=== PATIENT | male | born 1965 | race Caucasian/White ===

== ENCOUNTER 2020-08-03 12:17 | Outpatient (CLI) | payer OTHER, SELFPAY ==
--- NOTE | ~2020-08-03 | XR_ITS ---
EXAMINATION: XR chest 2V EXAM DATE: 08/03/2020 12:34 INDICATION: Cough, COVID positive. TECHNIQUE: Frontal and lateral projections of the chest obtained and reviewed. Comparison is made to prior examination from 03/19/2011. FINDINGS: Small amount of patchy ill-defined bibasilar infiltrate. Mid and upper lung zones are toney r. Cardiomediastinal silhouette is normal. Moderate-sized thoracic bridging endplate osteophytes. IMPRESSION: Small patchy ill-defined bibasilar infiltrate. Reviewed, dictated and finalized at location B. Y DEMONSTRATOR
== END 2020-08-03 12:18 | disposition home or self-care (01) ==
PROVIDERS: PCP Internal Medicine; Visit Provider Internal Medicine
DX: R05 Cough (principal); U07.1 COVID-19; R91.8 Other nonspecific abnormal finding of lung field
CPT/HCPCS: 71046

== ENCOUNTER 2021-03-23 08:59 | Outpatient (CLI) | payer OTHER, SELFPAY ==
[2021-03-23 11:17] LABS: Hemoglobin A1C 12.5 % (<5.7)
[2021-03-23 12:04] LABS: LDL Cholesterol Direct < 60 mg/dL
[2021-03-23 12:05] LABS: Alanine Aminotransferase 32 U/L (4-50); Albumin Level 4.5 g/dL (3.5-5.1); Alkaline Phosphatase 89 U/L (38-126); Anion Gap 10 mmol/L (8-16); Aspartate Amino Transferase 24 U/L (17-59); Bilirubin,Total 0.8 mg/dL (0.2-1.3); Blood Urea Nitrogen 11 mg/dL (9-20); Calcium 9.6 mg/dL (8.4-10.2); Carbon Dioxide 24 mmol/L (22-30); Chloride 101 mmol/L (98-107); Cholesterol 299 mg/dL (0-200); Estimated Glomerular Filt Rate > 60; Glucose 314 mg/dL (65-110); Potassium 4.2 mmol/L (3.4-5.0); Sodium 135 mmol/L (137-145)
[2021-03-23 13:16] LABS: Microalbumin Urine Random 873.6 mg/L (0-16.7)
[2021-03-23 14:34] LABS: Triglycerides 1024 mg/dL (<150)
== END 2021-03-23 09:00 | disposition home or self-care (01) ==
LOC: ANHLAB 09:01
PROVIDERS: PCP Internal Medicine; Visit Provider Internal Medicine
DX: E11.9 Type 2 diabetes mellitus without complications (principal); E78.5 Hyperlipidemia, unspecified; Z79.899 Other long term (current) drug therapy
CPT/HCPCS: 36415; 80053; 80061; 82043; 83036

== ENCOUNTER 2022-03-09 10:00 | Outpatient (CLI) | payer OTHER, SELFPAY ==
[2022-03-09 10:41] LABS: Hemoglobin A1C 7.6 % (<5.7)
[2022-03-09 10:55] LABS: LDL Cholesterol Direct 57 mg/dL
[2022-03-09 11:15] LABS: Alanine Aminotransferase 38 U/L (6-50); Albumin Level 4.6 g/dL (3.5-5.1); Alkaline Phosphatase 78 U/L (38-126); Anion Gap 12 mmol/L (8-16); Aspartate Amino Transferase 27 U/L (17-59); Bilirubin,Total 0.5 mg/dL (0.2-1.3); Blood Urea Nitrogen 21 mg/dL (9-20); Calcium 9.3 mg/dL (8.4-10.2); Carbon Dioxide 22 mmol/L (22-30); Chloride 105 mmol/L (98-107); Cholesterol 219 mg/dL (0-200); Estimated Glomerular Filt Rate > 60; Glucose 169 mg/dL (65-110); HDL Direct 33 mg/dL; Potassium 4.2 mmol/L (3.4-5.0); Sodium 139 mmol/L (137-145)
[2022-03-09 11:25] LABS: Creatinine Urine 71.4 mg/dL
[2022-03-09 11:32] LABS: MALB Creatinine Ratio 211.5 mg/g (0-30)
[2022-03-09 13:17] LABS: Prostate Specific Antigen 0.5 ng/mL (< OR = 4.0)
[2022-03-09 13:32] LABS: Triglycerides 628 mg/dL (<150)
== END 2022-03-09 10:01 | disposition home or self-care (01) ==
LOC: ANHLAB 10:03
PROVIDERS: PCP Internal Medicine; Visit Provider Internal Medicine
DX: E11.9 Type 2 diabetes mellitus without complications (principal); Z79.899 Other long term (current) drug therapy; Z12.5 Encounter for screening for malignant neoplasm of prostate; E78.5 Hyperlipidemia, unspecified
CPT/HCPCS: 36415; 80053; 80061; 82043; 83036; 84153; G0103

== ENCOUNTER 2023-02-12 09:05 | Outpatient (CLI) | payer OTHER, SELFPAY ==
[2023-02-13 11:51] LABS: MALB Creatinine Ratio 227.3 mg/g (0-30); Microalbumin Urine Random 134.1 mg/L (0-16.7)
== END 2023-02-12 09:06 | disposition home or self-care (01) ==
LOC: ANHGOSHLAB 09:07
PROVIDERS: PCP Nurse Practitioner Family; Visit Provider Nurse Practitioner
DX: E78.5 Hyperlipidemia, unspecified (principal); E11.9 Type 2 diabetes mellitus without complications
CPT/HCPCS: 82043

== ENCOUNTER 2023-04-15 09:00 | Outpatient (CLI) | payer OTHER, SELFPAY ==
[2023-04-15 19:35] LABS: Alanine Aminotransferase 33 U/L (6-50); Albumin Level 4.5 g/dL (3.5-5.1); Alkaline Phosphatase 76 U/L (38-126); Anion Gap 11 mmol/L (8-16); Aspartate Amino Transferase 25 U/L (17-59); Bilirubin,Total 0.6 mg/dL (0.2-1.3); Blood Urea Nitrogen 17 mg/dL (9-20); Calcium 8.9 mg/dL (8.4-10.2); Carbon Dioxide 24 mmol/L (22-30); Chloride 104 mmol/L (98-107); Cholesterol 233 mg/dL (0-200); Estimated Glomerular Filt Rate > 60; Glucose 182 mg/dL (65-110); Potassium 4.2 mmol/L (3.4-5.0); Sodium 139 mmol/L (137-145)
[2023-04-15 19:41] LABS: Hemoglobin A1C 8.1 % (<5.7)
[2023-04-15 19:42] LABS: Basophils Absolute Auto 0.1 K/mm3 (0.0-0.1); Basophils Percent Auto 1.2 % (0.2-1.2); Eosinophils Absolute Auto 0.1 K/mm3 (0-0.3); Eosinophils Percent Auto 1.2 % (0-4.4); Hematocrit 45.7 % (42.0-52.0); Hemoglobin 16.5 g/dL (14.0-18.0); Immature Granulocyte Absolute 0.25 K/mm3 (0.00-0.031); Immature Granulocyte Percent A 3.4 % (0-0.5); Lymphocytes Percent Auto 23.4 % (18.3-44.2); Mean Corpuscular HGB Conc 36.1 g/dl (32-36); Mean Corpuscular Hemoglobin 31.9 pg (26-34); Mean Corpuscular Volume 88.4 fl (80-100); Mean Platelet Volume 10.7 fl (7.4-10.4); Monocytes Absolute Auto 0.7 K/mm3 (0.1-0.6); Monocytes Percent Auto 9.6 % (2.6-8.5); Neutrophils Absolute Auto 4.5 K/mm3 (1.3-6.7); Neutrophils Percent Auto 61.2 % (45.5-73.1); Platelet Count Result 197 k/mm3 (150-375); Red Blood Count 5.17 M/mm3 (4.6-6.20); White Blood Count 7.3 K/mm3 (4.5-10.0)
[2023-04-15 19:44] LABS: LDL Cholesterol Direct 70 mg/dL
[2023-04-15 19:53] LABS: Triglycerides 715 mg/dL (<150)
[2023-04-16 17:49] LABS: Prostate Specific Antigen 0.7 ng/mL (< OR = 4.0)
[2023-04-18 10:08] LABS: Testosterone Total 225 ng/dL (250-1100)
== END 2023-04-15 09:01 | disposition home or self-care (01) ==
LOC: ANHGOSHLAB 09:02
PROVIDERS: PCP Nurse Practitioner Family; Visit Provider Nurse Practitioner Family
DX: E78.5 Hyperlipidemia, unspecified (principal); Z12.5 Encounter for screening for malignant neoplasm of prostate; E11.29 Type 2 diabetes mellitus with other diabetic kidney complication; R20.0 Anesthesia of skin; R80.9 Proteinuria, unspecified
CPT/HCPCS: 36415; 80053; 80061; 83036; 84153; 84403; 85025; 86812; G0103

== ENCOUNTER 2023-04-16 12:28 | Outpatient (CLI) | payer OTHER, SELFPAY ==
[2023-04-20 14:33] LABS: HLA B27 Negative (Negative)
== END 2023-04-16 12:29 | disposition home or self-care (01) ==
LOC: ANHGOSHLAB 12:30
PROVIDERS: Visit Provider Nurse Practitioner Family
DX: Z82.61 Family history of arthritis (principal)
CPT/HCPCS: 36415; 86812

== ENCOUNTER 2023-04-17 12:58 | Outpatient (CLI) | payer OTHER, SELFPAY ==
--- NOTE | ~2023-04-17 | MR_ITS ---
EXAMINATION: MR thoracic spine wo con DATE: 04/17/2023 14:48 INDICATION: Back pain TECHNIQUE: Magnetic resonance imaging (MRI) of the thoracic spine was performed without intravenous c ontrast. Sagittal localizer T1-weighted FSE of the cervicothoracic spine was obtained. Thoracic spine sequences included sagittal T2-weighted FSE, sagittal T1-weighted SE, Sagittal T2-weighted FS FSE, a nd axial T2-weighted FSE. COMPARISON: Chest radiograph dated 08/03/2020 FINDINGS: 15 degree thoracic dextroscoliosis. There are bridging or nearly bridging endplate osteophytes throug hout the thoracic spine consistent with diffuse idiopathic skeletal hyperostosis (DISH). Vertebral melissa dy heights are normal. There are small Schmorl's nodes along multiple endplates in the thoracic spine with lower thoracic predominance. Normal marrow signal.Moderate disc height loss at T4-T5 through T8 -T9with mild disc height loss at remaining thoracic levels. Disc protrusions resulting in mild centra l canal stenosis from T1 to T2 through T5-T6. Disc bulges resulting in mild indentation of the left v entral surface of the cord at T2-T3 and the right from surface of the cord at T3-T4. Mild neural for aminal stenosis bilaterally at T1-T2 and T2-T3. There is normal spinal cord signal. The conus termina nilesh at the level of the caudal margin of the [id number] at L1. Paravertebral soft tissues are unre markable. IMPRESSION: 1. Moderate thoracic spondylosis. Reviewed, dictated and finalized at location A.
--- NOTE | ~2023-04-17 | MR_ITS ---
EXAMINATION: MR cervical spine wo con DATE: 04/17/2023 14:48 INDICATION: Neck pain, left hand and arm numbness and anesthesia of skin TECHNIQUE: Magnetic resonance imaging (MRI) of the cervical spine was performed without intravenous c ontrast. Sequences included sagittal T2-weighted FSE, sagittal T2-weighted FS FSE, sagittal T1-weight ed FSE, axial MERGE and axial T2-weighted FSE. COMPARISON: None FINDINGS: Straightening of the normal cervical lordosis. Vertebral body heights are normal. Bone marrow signa l intensity is normal. There are prominent bridging anterior osteophytes extending from C2 through C7 and additional bridging osteophytes at T1-T3 consistent with diffuse idiopathic skeletal hyperostosi s (DISH). Mild disc height loss at C3-C4 and C5-C6 and moderate at C4-C5. Ossification along the pos terior longitudinal ligament from C4 through C6. Immediate signal intensity likely pannus formation s urrounding the dens which mildly narrows the central canal at the level of the ring of C1. Cord signa l intensity is normal. Cervical soft tissues are unremarkable. The following disc levels are specific ally discussed: C2-C3: The disc does not extend beyond the endplate margin. There is mild bilateral uncovertebral aleksandra nt osteoarthritis. There is mild right and moderate left facet joint osteoarthritis. There is mild le ft neural foraminal stenosis. There is no central canal stenosis. C3-C4: Disc is bulging. There is moderate left and severe right uncovertebral joint osteoarthritis. T here is minimal bilateral facet joint osteoarthritis. There is moderate left and mild to moderate rig ht neural foraminal stenosis. There is mild central canal stenosis with indentation of the right vent ral surface of the cord. C4-C5: Disc is mildly bulging and there is ossification of the posterior longitudinal ligament which indents the central to left ventral surface of the cord. There is severe bilateral uncovertebral oste oarthritis.. There is minimal bilateral facet joint osteoarthritis. There is moderate left and mild r ight neural foraminal stenosis. There is mild to moderate left-sided predominant central canal stenos is. C5-C6: Disc is mildly bulging. There is additional prominent ossification of the posterior longitudin al ligament with similarly indents the central to left ventral surface of the cord. There is severe b ilateral uncovertebral osteoarthritis. There is minimal bilateral facet joint osteoarthritis. There i s moderate bilateral neural foraminal stenosis. There is mild to moderate left-sided predominant cent ral canal stenosis. C6-C7: Disc is bulging. There is moderate right and severe left uncovertebral joint osteoarthritis. T here is minimal bilateral facet joint osteoarthritis. There is moderate bilateral neural foraminal st enosis. There is mild central canal stenosis. C7-T1: Disc is mildly bulging. There is mild left and moderate right uncovertebral joint osteoarthrit is. There is mild bilateral facet joint osteoarthritis. There is mild left and mild to moderate right neural foraminal stenosis. There is mild central canal stenosis. IMPRESSION: 1. Mild cervical spondylosis with bridging anterior osteophytes and ossification of the posterior regino gitudinal ligament consistent with DISH which contributes to mild to moderate central canal stenosis at C4-C5 and C5-C6. Reviewed, dictated and finalized at location A. IMPRESSION: 1. Mild cervical spondylosis with bridging anterior osteophytes and ossificatio n of the posterior longitudinal ligament consistent with DISH which contributes to mild to moderate central canal stenosis at C4-C5 and C5-C6.
== END 2023-04-17 12:59 ==
LOC: GOSHIMG 12:59
PROVIDERS: PCP Nurse Practitioner Family; Visit Provider Nurse Practitioner Family
DX: R20.0 Anesthesia of skin (principal); G54.2 Cervical root disorders, not elsewhere classified; R93.89 Abnormal findings on diagnostic imaging of other specified body structures; M47.894 Other spondylosis, thoracic region; M47.892 Other spondylosis, cervical region
CPT/HCPCS: 72141; 72146

== ENCOUNTER 2023-09-02 08:14 | Outpatient (CLI) | payer OTHER, SELFPAY ==
[2023-09-02 19:08] LABS: Basophils Absolute Auto 0.1 K/mm3 (0.0-0.1); Basophils Percent Auto 1.1 % (0.2-1.2); Eosinophils Absolute Auto 0.1 K/mm3 (0-0.3); Eosinophils Percent Auto 1.2 % (0-4.4); Hematocrit 48.4 % (42.0-52.0); Hemoglobin 16.6 g/dL (14.0-18.0); Immature Granulocyte Absolute 0.19 K/mm3 (0.00-0.031); Immature Granulocyte Percent A 2.3 % (0-0.5); Lymphocytes Absolute Auto 1.58 K/mm3 (0.9-3.2); Lymphocytes Percent Auto 19.2 % (18.3-44.2); Mean Corpuscular HGB Conc 34.3 g/dl (32-36); Mean Corpuscular Hemoglobin 29.9 pg (26-34); Mean Corpuscular Volume 87.1 fl (80-100); Mean Platelet Volume 9.9 fl (7.4-10.4); Monocytes Absolute Auto 0.9 K/mm3 (0.1-0.6); Monocytes Percent Auto 11.2 % (2.6-8.5); Neutrophils Absolute Auto 5.3 K/mm3 (1.3-6.7); Platelet Count Result 200 k/mm3 (150-375); Red Blood Count 5.56 M/mm3 (4.6-6.20); Red Cell Distribution Width 15.3 % (11.5-14.5); White Blood Count 8.2 K/mm3 (4.5-10.0)
[2023-09-02 21:08] LABS: Alanine Aminotransferase 38 U/L (6-50); Albumin Level 4.3 g/dL (3.5-5.1); Alkaline Phosphatase 72 U/L (38-126); Anion Gap 5 mmol/L (8-16); Aspartate Amino Transferase 36 U/L (17-59); Bilirubin,Total 0.7 mg/dL (0.2-1.3); Blood Urea Nitrogen 11 mg/dL (9-20); Calcium 9.3 mg/dL (8.4-10.2); Carbon Dioxide 29 mmol/L (22-30); Chloride 103 mmol/L (98-107); Cholesterol 185 mg/dL (0-200); Estimated Glomerular Filt Rate > 60; Glucose 141 mg/dL (65-110); HDL Direct 30 mg/dL; Potassium 4.1 mmol/L (3.4-5.0); Sodium 137 mmol/L (137-145); Triglycerides 416 mg/dL (<150)
[2023-09-02 21:19] LABS: LDL Cholesterol Direct 89 mg/dL
[2023-09-02 21:35] LABS: Hemoglobin A1C 8.1 % (<5.7)
[2023-09-05 11:55] LABS: Testosterone Total 311 ng/dL (250-1100)
== END 2023-09-02 08:15 | disposition home or self-care (01) ==
LOC: ANHGOSHLAB 08:16
PROVIDERS: PCP Nurse Practitioner Family; Visit Provider Nurse Practitioner Family
DX: E11.9 Type 2 diabetes mellitus without complications (principal); M19.90 Unspecified osteoarthritis, unspecified site; R20.0 Anesthesia of skin; Z79.899 Other long term (current) drug therapy; Z86.39 Personal history of other endocrine, nutritional and metabolic disease; E29.1 Testicular hypofunction; E11.29 Type 2 diabetes mellitus with other diabetic kidney complication; R80.9 Proteinuria, unspecified
CPT/HCPCS: 36415; 80053; 80061; 83036; 84403; 85025

== ENCOUNTER 2023-09-22 09:46 | Emergency (ER) | payer OTHER, SELFPAY ==
[2023-09-22 09:51] VITALS: BP 144/80; PULSE 86; RESP 16; TEMP 36.6; O2SAT 98
--- NOTE | 2023-09-22 10:25 | ED.URI ---
HPI - URI/Sore Throat General Chief Complaint: Upper Respiratory Infection Stated Complaint: Sore Throat Time Seen by Provider: 09/22/23 10:18 Source: patient and RN notes reviewed Mode of arrival: ambulatory Limitations: no limitations History of Present Illness HPI Narrative: Patient presents today complaining of a one-week history of sore throat, postnasal drip, rhinorrhea. He also reports recent gum pain, swelling, bleeding, which has been present in the past and diagnosed as a fungal infection by his dentist. Currently rates his sore throat 02/28 and has tried no medication for symptoms prior to arrival. States that his dentist typically prescribes him clotrimazole troches for his gums and he is wondering if he could have a refill. Related Data Allergies Allergy/AdvReac Type Severity Reaction Status Date / Time codeine Allergy Mild Hives Verified 09/05/23 10:36 Penicillins Allergy Mild Hives Verified 09/05/23 10:36 lisinopril AdvReac Cough Verified 09/05/23 11:20 Review of Systems Review of Systems: CONSTITUTIONAL: Denies body aches, fever, chills, or sweats. EYES: Denies visual changes, redness, or discharge. ENT: Denies congestion, or otalgia.+ sore throat, rhinorrhea, postnasal drip, gum pain and swelling CARDIOVASCULAR: Denies chest pain, palpitations, or edema. RESPIRATORY: Denies cough or dyspnea. GASTROINTESTINAL: Denies abdominal pain, nausea, vomiting, or diarrhea. GENITOURINARY: Denies dysuria or hematuria. SKIN: Denies rash, itching, or wounds. MUSCULOSKELETAL: Denies back pain, joint pain, or myalgia. NEUROLOGIC: Denies headache, numbness, tingling, or weakness. PSYCH: Denies depression or anxiety. [facility] Past Medical History Medical History Colon cancer screening Dyspepsia High blood triglycerides History of COVID-19 Nausea Other and unspecified hyperlipidemia Type 2 diabetes mellitus without complication, without long-term current use of insulin Surgical History Surgical History History of lumbar fusion History of right inguinal hernia repair History of tonsillectomy and adenoidectomy History of uvulectomy Family History Family History Father Family history of diabetes mellitus in first degree relative Family history of psoriasis Other Diabetes mellitus Social History Social History Smoking status: Never smoker Alcohol intake: never Substance use: never Lack of Transportation: No Lack of Food: Never True Current Housing: I Have Housing Concerned About Future Housing: No Difficulty Paying Gas/Electric Bills: No Difficulty Paying for Meds: No Currently Unemployed: No Education: Associate Degree Difficulty w/ Childcare or Family Care: No Living arrangements: with family Occupation/Education: occupation 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 Please see nursing chart for further information. There is no relevant family history pertinent to the presenting complaint Exam Narrative: GENERAL: Well-appearing, well-nourished, and in no acute distress. HEAD: Normocephalic, atraumatic. EYES: EOMI. No redness or drainage. Conjunctivae normal. ENT: Mucous membranes pink and moist. Nares clear. No rhinorrhea. TMs normal bilaterally. Throat mildly erythematous posteriorly without edema or exudate. Uvula midline. Gums are mild to moderately swollen and erythematous. NECK: Normal AROM. Supple. No lymphadenopathy. CHEST: No respiratory
== END 2023-09-22 10:34 | disposition home or self-care (01) ==
PROVIDERS: Emergency Provider Nurse Practitioner; PCP Nurse Practitioner Family
DX: K05.10 Chronic gingivitis, plaque induced (principal); J02.9 Acute pharyngitis, unspecified; E11.9 Type 2 diabetes mellitus without complications
CPT/HCPCS: 87081; 87880; 99213; G0463

== ENCOUNTER 2024-01-14 07:56 | Outpatient (CLI) | payer OTHER, SELFPAY ==
[2024-01-14 12:26] LABS: Basophils Absolute Auto 0.1 K/mm3 (0.0-0.1); Basophils Percent Auto 0.7 % (0.2-1.2); Eosinophils Absolute Auto 0.1 K/mm3 (0-0.3); Eosinophils Percent Auto 1.8 % (0-4.4); Hematocrit 49.1 % (42.0-52.0); Hemoglobin 16.4 g/dL (14.0-18.0); Immature Granulocyte Absolute 0.17 K/mm3 (0.00-0.031); Immature Granulocyte Percent A 2.5 % (0-0.5); Lymphocytes Percent Auto 19.1 % (18.3-44.2); Mean Corpuscular HGB Conc 33.4 g/dl (32-36); Mean Corpuscular Hemoglobin 29.3 pg (26-34); Mean Corpuscular Volume 87.8 fl (80-100); Mean Platelet Volume 10.4 fl (7.4-10.4); Monocytes Absolute Auto 0.8 K/mm3 (0.1-0.6); Monocytes Percent Auto 11.6 % (2.6-8.5); Neutrophils Absolute Auto 4.4 K/mm3 (1.3-6.7); Neutrophils Percent Auto 64.3 % (45.5-73.1); Platelet Count Result 190 k/mm3 (150-375); Red Blood Count 5.59 M/mm3 (4.6-6.20); Red Cell Distribution Width 14.6 % (11.5-14.5); White Blood Count 6.8 K/mm3 (4.5-10.0)
[2024-01-14 12:43] LABS: Creatinine Urine 65.4 mg/dL
[2024-01-14 12:45] LABS: MALB Creatinine Ratio 101.2 mg/g (0-30); Microalbumin Urine Random 66.2 mg/L (0-16.7)
[2024-01-14 12:53] LABS: Alanine Aminotransferase 36 U/L (6-50); Albumin Level 4.6 g/dL (3.5-5.1); Alkaline Phosphatase 80 U/L (38-126); Anion Gap 9 mmol/L (4-12); Aspartate Amino Transferase 36 U/L (17-59); Bilirubin,Total 0.7 mg/dL (0.2-1.3); Blood Urea Nitrogen 16 mg/dL (9-20); Calcium 9.2 mg/dL (8.4-10.2); Carbon Dioxide 29 mmol/L (22-30); Chloride 102 mmol/L (98-107); Estimated Glomerular Filt Rate > 60; Glucose 168 mg/dL (65-110); Potassium 4.5 mmol/L (3.4-5.0); Sodium 140 mmol/L (137-145)
[2024-01-14 15:24] LABS: Hemoglobin A1C 7.7 % (<5.7)
[2024-01-17 13:38] LABS: Testosterone Total 160 ng/dL (250-1100)
== END 2024-01-14 07:57 | disposition home or self-care (01) ==
LOC: ANHGOSHLAB 07:57
PROVIDERS: PCP Nurse Practitioner Family; Visit Provider Nurse Practitioner Family
DX: E11.29 Type 2 diabetes mellitus with other diabetic kidney complication (principal); E78.1 Pure hyperglyceridemia; M48.10 Ankylosing hyperostosis [Forestier], site unspecified; R80.9 Proteinuria, unspecified
CPT/HCPCS: 36415; 80053; 82043; 83036; 84403; 85025

== ENCOUNTER 2024-05-28 13:15 | Emergency (ER) | payer OTHER, SELFPAY ==
--- NOTE | ~2024-05-28 | XR_ITS ---
Left Shoulder Technique: AP and scapular Y views were obtained. Clinical History: Status post fall Findings: No fracture or dislocation is seen. Osseous alignment is anatomic. The glenohumeral joint i s intact. There is moderate AC joint degenerative change. Soft tissues are unremarkable. Impression: Moderate AC joint degenerative change. No acute fracture or dislocation. Reviewed, dictated and finalized at location . RNEY LAW CLERK Impression: Moderate AC joint degenerative change. No acute fracture or dislocation.
--- NOTE | 2024-05-28 13:51 | ED.UPPEXIN ---
HPI - Extremity Injury (Upper) General Chief Complaint: Extremity Injury, Upper Stated Complaint: fall/ lt shoulder injury Time Seen by Provider: 05/28/24 13:51 Source: patient, RN notes reviewed and old records reviewed Mode of arrival: ambulatory Limitations: no limitations History of Present Illness HPI narrative: 58-year-old male presents to the [facility] with complaints of left shoulder injury post fall 2 days ago. Patient states that he was walking down a small slope wearing his Crocs, slipped landing on his left side. States that everything at 1st. Now is denying back pain. No midline tenderness. Has pain to the left anterior shoulder with decreased range of motion. Able to raise a little bit. Patient with full range of motion of the elbow and wrist. Positive radial pulse noted. Related Data Allergies Allergy/AdvReac Type Severity Reaction Status Date / Time codeine Allergy Mild Hives Verified 05/28/24 13:46 Penicillins Allergy Mild Hives Verified 05/28/24 13:46 lisinopril AdvReac Cough Verified 05/28/24 13:46 Review of Systems Review of Systems: All systems reviewed & are unremarkable except as noted in HPI and below Constitutional: Constitutional: Reports no additional constitutional complaints ENT: Reports system reviewed and no additional complaints, except as documented Cardiovascular: Cardiovascular: Reports no additional cardiovascular complaints, Denies chest pain and Denies dyspnea Respiratory: Respiratory: Reports no additional respiratory complaints, Denies chest congestion, Denies cough and Denies dyspnea Gastrointestinal: Gastrointestinal: Reports no additional gastrointestinal complaints, Denies abdominal pain, Denies nausea and Denies vomiting Musculoskeletal: Musculoskeletal: Reports as per HPI and Reports arthralgias (Left anterior shoulder) Integumentary/Breasts: Skin/Breast: Reports system reviewed and no additional complaints, except as docu PMFSH Past Medical History Medical History Colon cancer screening Dyspepsia High blood triglycerides History of COVID-19 Nausea Other and unspecified hyperlipidemia Type 2 diabetes mellitus without complication, without long-term current use of insulin Surgical History Surgical History History of lumbar fusion History of right inguinal hernia repair History of tonsillectomy and adenoidectomy History of uvulectomy Family History Family History Father Family history of diabetes mellitus in first degree relative Family history of psoriasis Other Diabetes mellitus Social History Social History Smoking status: Never smoker Alcohol intake: never Substance use: never Lack of Transportation: No Lack of Food: Never True Current Housing: I Have Housing Concerned About Future Housing: No Difficulty Paying Gas/Electric Bills: No Difficulty Paying for Meds: No Currently Unemployed: No Education: Associate Degree Difficulty w/ Childcare or Family Care: No Living arrangements: with family Occupation/Education: occupation 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 There is no relevant family history pertinent to the patient complaint. Exam Const: General: cooperative, healthy appearing, comfortable, no acute distress, well developed, alert and well nourished Nutritional Appearance: well nourished Orientation/consciousness: patient oriented x3 Limitations: no limitations HENMT: Head: normal to inspection Ears: hearing grossly normal bilaterally and external ears normal Face/Nose/Sinus: Normal external nose present, normal facial exam and face symmetric Face and sinus: normal facial exam and face symmetric Eyes: General: appearance normal, both eyes and all related structures Alignment and Position: alignment normal Periorbital: periorbital findings normal Neck: Neck: normal visual inspection, full ROM, no lymphadenopathy and no meningeal signs Chest: Chest palpation & inspection: normal inspection of the chest Resp: Effort & Inspection: normal respiratory effort and able to speak in complete sentences Cardio: Rate: regular rate Back/Spine/Pelvis: Back: no CVA tenderness and No back tenderness Cervical Spine: normal cervical lordosis, cervical ROM normal, No cervical muscular tenderness, No pain with cervical ROM, No cervical spasm and No Cervical spine tenderness Thoracic/Lumbar Spine: thoracic and lumbar spine normal to inspection, No paraspinal muscle tenderness, No thoracic spinal tenderness and No lumbar spinal tenderness Skin: General skin exam: normal color and no rashes or lesions noted Lesions: no lesions Rashes: no rashes Wounds: no wounds Neuro: General: patient oriented x3, gait normal, tone normal, moves all extremities and no meningeal signs Cognition (Neuro): normal cognition Speech: normal speech Gait exam (Neuro): Normal gait present Extrem: General: normal to inspection, full ROM, capillary refill normal and normal gait Left upper extremity: shoulder/upper arm tenderness (Anterior) and abnormal ROM pain with active ROM and pain with passive ROM; no swelling, no abrasions, no lacerations, no ecchymosis, no crepitus, no foreign bodies, no penetrating wound and no deformity, elbow/forearm normal to inspection and normal ROM; no tenderness, wrist normal to inspection and normal ROM; no tenderness and no swelling and hand normal to inspection, normal capillary refill and normal ROM of fingers Psych: Appearance: grossly normal and well kempt Mental Status: mental status grossly normal Speech and movement: Normal speech and movement present and Clear speech present Affect: normal affect Attitude: cooperative Course Course Level of Care: Express Care Visit Vital Signs Vital signs: Vital Signs Temperature 98.2 F 05/28/24 13:53 Pulse Rate 86 05/28/24 13:53 Respiratory Rate 16 05/28/24 13:53 Blood Pressure 156/101 H 05/28/24 13:53 Pulse Oximetry 99 05/28/24 13:53 Temperature 98.2 F 05/28/24 13:53 Pulse Rate 86 05/28/24 13:53 Respiratory Rate 16 05/28/24 13:53 Blood Pressure 156/101 H 05/28/24 13:53 Pulse Oximetry 99 05/28/24 13:53 Reviewed MDM - Extremity Injury (Upper) MDM Narrative Medical decision making narrative: Patient presents with 2 day history left shoulder pain. Patient reports slipping and falling landing on his left shoulder Bruising or swelling noted. No midline tenderness. Currently denies any back pain. X-ray negative for fractures. Exam most consistent with contusion or strain or sprain of ligaments. Patient appropriate for outpatient treatment and follow-up Discharge instructions reviewed with patient, as well as provided in writing per nursing staff. The instructions also include specific and strict return/GO TO THE ER as well as f/u information. All questions have been answered, and the patient deny any further questions with discharge and discharge plan. Some parts of this dictation were generated by voice recognition software and may contain typographical and/or grammatical inaccuracies. Differential Diagnosis Differential diagnosis: Likely other (Fracture, sprain, contusion) Imaging Data Radiologist's impression: Left Shoulder Technique: AP and scapular Y views were obtained. Clinical History: Status post fall Findings: No fracture or dislocation is seen. Osseous alignment is anatomic. The glenohumeral joint is intact. There is moderate AC joint degenerative change. Soft tissues are unremarkable. Impression: Moderate AC joint degenerative change. No acute fracture or dislocation. Critical Care Time Critical Care Time Critical Care Time: No Discharge Plan Discharge Clinical Impression: Acute pain of left shoulder Fall Qualifiers: Encounter type: initial encounter Qualified Code(s): W19.XXXA - Unspecified fall, initial encounter Patient Disposition: Home, Self-Care Condition: Stable Instructions: Shoulder Sprain (ED), Shoulder Pain (ED) Additional Instructions: Today your blood pressure was 156/101. It is recommended that you follow-up with your primary care provider within the next 2 weeks to have this rechecked. Your Xray did not show a fracture. Ice should be applied to help reduce swelling. It can be used for 20 to 30 minutes, every 2-3 hours while awake. Do not apply ice directly to your skin. You can alternate ibuprofen 600mg and Tylenol 650mg every 4 hours as needed for pain Please schedule a follow-up visit with your personal physician for further evaluation and treatment within 2 weeks especially if symptoms persist. For new or worsening symptoms go directly to the emergency room Patient Language: Ukrainian Prescriptions: No Action Jardiance 25 mg tablet See Rx Instructions .ROUTE .COMPLEX Qty: 90 1RF Hold Instructions: .Provider Order Dose Instruction: TAKE 1 TABLET (25 MG) ORALLY DAILY Rx Instructions: TAKE 1 TABLET (25 MG) ORALLY DAILY sertraline 100 mg tablet See Rx Instructions .ROUTE .COMPLEX Qty: 90 1RF Hold Instructions: .Provider Order Dose Instruction: TAKE 1 TABLET BY MOUTH EVERY DAY Rx Instructions: TAKE 1 TABLET BY MOUTH EVERY DAY metformin 1,000 mg tablet See Rx Instructions .ROUTE .COMPLEX Qty: 90 3RF Hold Instructions: .Provider Order Dose Instruction: TAKE 1 TABLET BY MOUTH EVERY DAY Rx Instructions: TAKE 1 TABLET BY MOUTH EVERY DAY glipizide 10 mg tablet See Rx Instructions .ROUTE .COMPLEX Qty: 90 1RF Hold Instructions: .Provider Order Dose Instruction: TAKE 1 TABLET BY MOUTH EVERY DAY Rx Instructions: TAKE 1 TABLET BY MOUTH EVERY DAY rosuvastatin 10 mg tablet See Rx Instructions .ROUTE .COMPLEX Qty: 90 1RF Dose Instruction: TAKE ONE TABLET BY MOUTH DAILY Rx Instructions: TAKE ONE TABLET BY MOUTH DAILY testosterone cypionate 200 mg/mL oil 200 mg IM ONCE Qty: 10 0RF Hold Instructions: .Provider Order Rx Instructions: as a single dose; every two weeks Follow-up/Referrals: Thao Kumar APRN [Primary Care Provider] - 2 Weeks ([facility] follow up. blood pressure check, 156/101) Stand Alone Forms: Work/School Release IP Time of Disposition: 14:40
[2024-05-28 13:53] VITALS: BP 156/101; PULSE 86; RESP 16; TEMP 36.8; O2SAT 99
== END 2024-05-28 14:50 | disposition home or self-care (01) ==
PROVIDERS: Emergency Provider Nurse Practitioner; PCP Nurse Practitioner Family
DX: M25.512 Pain in left shoulder (principal); W01.0XXA Fall on same level from slipping, tripping and stumbling without subsequent striking against object, initial encounter; E11.9 Type 2 diabetes mellitus without complications; E78.49 Other hyperlipidemia; Z86.16 Personal history of COVID-19
CPT/HCPCS: 73030; 99213; G0463

== ENCOUNTER 2024-08-28 10:13 | Outpatient (CLI) | payer OTHER, SELFPAY ==
--- OUTSIDE RECORDS SUMMARY | 2024-08-28 10:58 | XMS_ITS | Referral Summary ---
Author Organization [facility] Address [address] [place] [address] Care Team Providers Care Top Lift Compressor Name Role Phone Thao Kumar Primary Care Provider [phone] Source Comments [facility],non-owned Affiliates and Associated Physician Practices is amultiple site organization consisting of ambulatory clinics and hospital sitesin [place], [place], [place] and [place]. This disclosure is being madepursuant to the Care Everywhere program and may not contain all information available regarding this patient. Last updated 18.[facility] Allergies Active Allergy Reactions Criticality Noted Date Comments Codeine Rash Medium 04/30/2023 Penicillins Rash Medium 04/30/2023 Medications * Be aware that medications may not be up to date on this document. Alwaysverify current medications with the patient. Medication Sig Dispensed Refills Start Date End Date Status metFORMIN (Glucophage) 1000 MG tablet Take 1 (one) tablet by mouth once daily 02/20/2023 Active Ozempic, 0.25 or 0.5 MG/DOSE, 2 MG/3ML SOPN INJECT 0.5 MG (0.736 ML) SUBCUTANEOUSLY WEEKLY FOR 4 WEEKS 04/16/2023 Active sertraline (Zoloft) 100 MG tablet Take 1 (one) tablet by mouth once daily 03/13/2023 Active glipiZIDE (Glucotrol) 10 MG tablet TAKE 1 TABLET (10 MG) ORALLY TWICE A DAY 02/25/2023 Active Jardiance 25 MG tablet TAKE 1 TABLET (25 MG) ORALLY DAILY 03/15/2023 Active lisinopril (Prinivil; Zestril) 2.5 MG tablet Take 1 (one) tablet by mouth once daily 02/18/2023 Active atorvastatin (Lipitor) 20 MG tablet Take 1 (one) tablet by mouth once daily 06/14/2022 Active Blood Glucose Monitoring Suppl (Accu-Chek Guide) w/Device KIT 04/22/2023 Active Accu-Chek Guide test strip 04/22/2023 Active testosterone cypionate (Depo-Testosterone ) 200 MG/ML injection 04/22/2023 Active BD Plastipak Syringe 21G X 1 3 ML MISC USE DIRECTED EVERY 2 WEEKS TO ADMINISTER TESTOSTERONE INJECTION 09/17/2022 Activ e Social History Tobacco Use Types Packs/Day Years Used Date Smoking Tobacco: Former Cigarettes Smokeless Tobacco: Never Tobacco Cessation:Counseling Given: Not Answered Alcohol Use Standard Drinks/Week Comments Never 0 (1 standard drink = 0.6 oz pur e alcohol) Sex and Gender Information Value Date Recorded Sex Assigned at Not on file Gender Identity Not on file Sexual Orientation Not on file Last Filed Vital Signs Vital Sign Reading Time Taken Comments Blood Pressure 126/85 05/03/2023 9:01 AM CDT Pulse 93 05/03/2023 9:01 AM CDT Temperature 36.7 C (98 F) 05/03/2023 9:01 AM CDT Respiratory Rate 18 04/30/2023 9:21 AM CDT Oxygen Saturation 93% 05/03/2023 9:01 AM CDT Inhaled Oxygen Concentration - - Weight 132.5 kg (292 lb) 05/03/2023 9:01 AM CDT Height 177.8 cm (5' 10 ) 05/03/2023 9:01 AM CDT Body Mass Index 41.9 05/03/2023 9:01 AM CDT Plan of Treatment Not on file Care Teams Top Lift Compressor Relationship Specialty Start Date End Date Thao Kumar PA [address] [place] [address] PCP - General Nurse Practitioner Primary Care 04/30/23
--- OUTSIDE RECORDS SUMMARY | 2024-08-28 10:58 | XMS_ITS | Clinical Summary ---
Author Organization [facility] Address [address] [place] [address] Care Team Providers Care Reinforcing Iron And Rebar Workers Name Role Phone Thao Kumar Primary Care Provider [phone] Source Comments [facility],non-owned Affiliates and Associated Physician Practices is amultiple site organization consisting of ambulatory clinics and hospital sitesin [place], [place], [place] and [place]. This disclosure is being madepursuant to the Care Everywhere program and may not contain all information available regarding this patient. Last updated 18.[facility] [employer] Allergies Active Allergy Reactions Criticality Noted Date [...] 05/03/2023 9:01 AM CDT Plan of Treatment Health Maintenance Due Date Last Done Comments COLOGUARD (AGES 45-75) - COL ON CA SCREENING 1966 COLON MONITORING 1966 COLONOSCOPY - COLON CA SCREENING 1966 CT COLONOGRAPHY - COLON CA SCREENING 1966 Colorectal Cancer Screening 1966 FIT - COLON CA SCREENING 1966 FLEX SIG - COLON CA SCREENING 1966 HIV SCREENING 1981 HEPATITIS C SCREENING 08/17/1984 DTAP/TDAP/TD VACCINES (1 - Tdap) 1985 HEPATITIS B VACCINE (1 of 3 - 19+ 3-dose series) 1985 PNEUMOCOCCAL VACCINE 50+ (1 of 1 - PCV) 2016 ZOSTER VACCINE (1 of 2) 2016 SCREENING FOR DIABETES 04/30/2023 COVID-19 VACCINE (2023-2 5 season) 2024 INFLUENZA VACCINE (#1) 2024 DEPRESSION SCREENING 07/22/2024 HIB VACCINE Aged Out No longer eligi ble based on patient's age to complete this topic HPV VACCINE Aged Out No longer eligi ble based on patient's age to complete this topic MENINGOCOCCAL (Group B) VACCINE Aged Out No longer eligible based on patient's age to complete this topic MENINGOCOCCAL VACCINE Aged Out No regino ryan eligible based on patient's age to complete this topic PNEUMOCOCCAL VACCINE Aged Out No long er eligible based on patient's age to complete this topic Care Teams Reinforcing Iron And Rebar Workers Relationship Specialty Start Date End Date Thao Kumar PA [address] [place] [address] PCP - General Nurse Practitioner Primary Care 04/30/23
--- OUTSIDE RECORDS SUMMARY | 2024-08-28 10:58 | XMS_ITS | Patient Health Summary ---
Author Organization [facility] Address [address] [place] [address] Care Team Providers Care Laundry Superintendent Name Role Phone Thao Kumar Primary Care Provider [phone] Note from [facility],non-owned Affiliates and Associated Physician Practices is amultiple site organization consisting of ambulatory clinics and hospital sitesin [place], [place] and [place]. This disclosure is being madepursuant to the Care Everywhere program and may not contain all information available regarding this patient. Last updated 18.[facility] Allergies * Codeine(Rash) -Medium Criticality * Penicillins(Rash) -Medium Criticality Medications * Be aware that medications may not be up to date on this document. Alwaysverify current medications with the patient. * metFORMIN (Glucophage) 1000 MG tablet(Started 02/20/2023) Take 1 (one) tablet by mouth once daily * Ozempic, 0.25 or 0.5 MG/DOSE, 2 MG/3ML SOPN(Started 04/16/2023) INJECT 0.5 MG (0.736 ML) SUBCUTANEOUSLY WEEKLY FOR 4 WEEKS * sertraline (Zoloft) 100 MG tablet(Started 03/13/2023) Take 1 (one) tablet by mouth once daily * glipiZIDE (Glucotrol) 10 MG tablet(Started 02/25/2023) TAKE 1 TABLET (10 MG) ORALLY TWICE A DAY * Jardiance 25 MG tablet(Started 03/15/2023) TAKE 1 TABLET (25 MG) ORALLY DAILY * lisinopril (Prinivil; Zestril) 2.5 MG tablet(Started 02/18/2023) Take 1 (one) tablet by mouth once daily * atorvastatin (Lipitor) 20 MG tablet(Started 06/14/2022) Take 1 (one) tablet by mouth once daily * Blood Glucose Monitoring Suppl (Accu-Chek Guide) w/Device KIT(Started 04/22/2023) * Accu-Chek Guide test strip(Started 04/22/2023) * testosterone cypionate (Depo-Testosterone) 200 MG/ML injection(Started 04/22/2023) * BD Plastipak Syringe 21G X 1 3 ML MISC(Started 09/17/2022) USE DIRECTED EVERY 2 WEEKS TO ADMINISTER TESTOSTERONE INJECTION Social History Tobacco Use Types Packs/Day Years [...] Mass Index 41.9 05/03/2023 9:01 AM CDT Procedures * DEXA BONE DENSITY AXIAL SKELETON(Performed 07/01/2023) Performed for Cervicalgia * CT CERVICAL SPINE WO CONTRAST(Performed 05/07/2023) Performed for Cervicalgia * XR SKULL TO ANKLE DI(Performed 04/30/2023) Performed for Cervicalgia Results * BONE DENSITY AXIAL SKELETON(1OR MORE SITES)[id number] (07/01/2023 11:09 AM DIRECTOR OF SOCIAL WORK) Anatomical Region Laterality Modality Other 07/01/2023 11:0 9 AM DIRECTOR OF SOCIAL WORK Narrative 07/02/2023 1:27 PM DIRECTOR OF SOCIAL WORK PROCEDURE: DEXA BONE DENSITY AXIAL SKELETON DATE/TIME OF EXAM: 07/01/2023 11:09 AM CLINICAL INFORMATION: None relevant/not provided if blank. Indication: M54.2: Cervicalgia COMPARISON: No similar prior study. LUMBAR SPINE (L1-L4): Bone mineral density (g/cm2): 1.610 Current T-score: 4.5 LEFT FEMORAL NECK: Bone mineral density (g/cm2): 1.274 Current T-score: 2.5 BONE DENSITY ASSESSMENT: WHO Category: Normal. FRAX not reported because all T-scores for spine total, hip total, femoral neck at or above -1.0. Please see the PACS images for additional details. World Health Organization definitions of standard deviations relative to the mean T-score: Normal bone density = -1.0 and above Osteopenia = between -1.0 and -2.5 Osteoporosis = -2.5 and below > Dictated by Otilia Mercado MD (Veneer Measurer) 07/01/2023 11:09 AM IGarry MD have personally reviewed and interpreted this examination/study. > Interpreting Provider: Garry Tellez MD on 07/02/2023 1:27 PM Procedure Note Garry Tellez MD - 08/13/2023 PROCEDURE: DEXA BONE DENSITY AXIAL SKELETON DATE/TIME OF EXAM: 07/01/2023 11:09 AM CLINICAL INFORMATION: None relevant/not provided if blank. Indication: M54.2: Cervicalgia COMPARISON: No similar prior study. LUMBAR SPINE (L1-L4): Bone mineral density (g/cm2): 1.610 Current T-score: 4.5 LEFT FEMORAL NECK: Bone mineral density (g/cm2): 1.274 Current T-score: 2.5 BONE DENSITY ASSESSMENT: WHO Category: Normal. FRAX not reported because all T-scores for spine total, hip total,femoral neck at or above -1.0. Please see the PACS images for additional details. World Health Organization definitions of standard deviations relative to the mean T-score: Normal bone density = -1.0 and above Osteopenia = between -1.0 and -2.5 Osteoporosis = -2.5 and below > Dictated by Otilia Mercado MD (Veneer Measurer) 07/01/2023 11:09AM Garry Arrigaa MD have personally reviewed and interpreted this examination/study. > Interpreting Provider: Garry Tellez MD on 07/02/2023 1:27 PM Sam Jackson MD DEXA ORDERABLES * CT CERVICAL SPINE WO CONTRAST (05/07/2023 1:35 PM CDT) Anatomical Region Laterality Modality Spine Computed Tomogra phy 05/09/2023 8:23 AM CDT Impressions 05/09/2023 11:14 AM CDT IMPRESSION: Multilevel cervical degenerative disc and joint disease with disc bulging/spondylosis, ossification of posterior longitudinal ligament, canal narrowing, and foraminal narrowing, as detailed above. There is severe canal narrowing at C3-4, C4-5, and C5-6 and there may be cord impingement at C5-6 and the cord may be abutted C3-4. In addition, the axial images suggest a possible left paracentral/foraminal disc protrusion at C6-7. Correlation with the patient's outside MR study and clinical findings is recommended. Narrowing the sagittal and spinal canal at C1-2 level secondary to ligamentous thickening posterior to the odontoid process. The AP diameter spinal canal measures roughly 7 mm. Findings consistent with diffuse idiopathic skeletal hyperostosis extending from roughly C2-C7. Mild canal narrowing at T2-3 secondary to spondylosis with a partially calcified left paracentral disc protrusion. Mild spondylosis at T1-T2. Report dictated by Papa Gallegos DO (Veneer Measurer). Jerome Arriaga MD have personally reviewed and interpreted this examination/study. > Interpreting Provider: Jerome Koehler MD on 05/09/2023 11:14 AM Narrative 05/09/2023 11:14 AM CDT PROCEDURE: CT CERVICAL SPINE WO CONTRAST, DATE/TIME OF EXAM: 05/07/2023 1:36 PM, LOCATION [facility] INDICATION: M54.2: Cervicalgia ADDITIONAL CLINICAL INFORMATION: Ordering Provider Reason For Exam: Technologist Note: Additional: COMPARISON: None. TECHNIQUE: CT of the cervical spine was performed without contrast according to standard protocol. FINDINGS: There is no evidence of acute fracture or traumatic malalignment. There is some straightening of the cervical spine. There is confluent anterior bony bridging extending from roughly C2-C7 consistent with diffuse idiopathic skeletal hyperostosis. This is most prominent from C2 through C5. Ossification of the nuchal ligament is noted. There is segmental ossification of the posterior longitudinal ligament at all levels from C3 through C7. There are mild degenerative changes of the atlantooccipital joints bilaterally. There is an articulation of the left lateral mass of C1 with the occiput consistent with a paracondylar process. At C1-2 there are mild degenerative changes at the atlantodental joint. There is some ligamentous thickening posterior to the odontoid process narrowing the sagittal diameter of the spinal canal which measures approximately 9 mm mm in AP dimension. At C2-3 there is mild, partially calcified central disc bulging and bilateral uncovertebral joint spurring. Mild canal narrowing is produced by the disc abnormality and some posterior ligamentous thickening. Moderate facet joint degenerative changes are present on the left. Left neuroforamen is at the lower limit of normal. At C3-4 there is spondylosis asymmetric to the right with bilateral uncovertebral joint spurring. Severe canal narrowing is produced by the disc abnormality and ossification of the posterior longitudinal ligament with the sagittal diameter spinal canal measuring roughly 6.5 mm. The cord is likely abutted. Mild facet joint degenerative changes are present bilaterally. There is severe bilateral foraminal narrowing. At C4-5 there is spondylosis asymmetric to the left. Severe canal narrowing is produced by the disc abnormality ossification of posterior longitudinal ligament. The sagittal and spinal canal measuring roughly 5.8 mm. Cord impingement may be produced. There is mild right foraminal narrowing. At C5-6 there is spondylosis asymmetric to the left with a partially calcified left central disc protrusion. Severe canal narrowing is produced by the disc abnormality and ossification of posterior longitudinal ligament. The AP diameter of the spinal canal to the left midline is roughly 6.8 mm. Some cord impingement may be produced. There is bilateral uncovertebral joint spurring. There is severe left foraminal narrowing and mild right. At C6-7 there is spondylosis and bilateral uncovertebral joint spurring. The axial images suggest a left paracentral/foraminal disc protrusion measuring roughly 3 mm in AP dimension. Mild canal narrowing is produced by the disc abnormality and some ossification of posterior longitudinal ligament. There is severe bilateral foraminal narrowing. At C7-T1 there is spondylosis asymmetric to the right. Moderate canal narrowing is produced by the disc abnormality and ossification of posterior longitudinal ligament with the sagittal dimension of the spinal canal measuring roughly 8 mm. Mild facet joint degenerative changes are present bilaterally. There is severe right foraminal narrowing and mild left. At T1-T2 there is mild spondylosis and bilateral uncovertebral joint spurring. There is no canal narrowing. There may be some fusion of the facet joints bilaterally at this level. There is moderate right and mild left foraminal narrowing. At T2-3 there is spondylosis with a partially calcified left paracentral disc protrusion and bilateral uncovertebral joint spurring. Mild canal narrowing is produced. There is moderate right foraminal narrowing and mild left. The right styloid process is prominent measuring approximately 47 mm length Procedure Note Jerome Koehler MD - 05/09/2023 PROCEDURE: CT CERVICAL SPINE WO CONTRAST, DATE/TIME OF EXAM:05/07/2023 1:36 PM, LOCATION [facility] INDICATION: M54.2: Cervicalgia ADDITIONAL CLINICAL INFORMATION: Ordering Provider Reason For Exam: Technologist Note: Additional: COMPARISON: None. TECHNIQUE: CT of the cervical spine was performed without contrast according to standard protocol. FINDINGS: There is no evidence of acute fracture or traumatic malalignment. Thereis some straightening of the cervical spine. There is confluent anteriorbony bridging extending from roughly C2-C7 consistent with diffuse idiopathic skeletal hyperostosis. This is most prominent from C2 through C5. Ossification of the nuchal ligament is noted. There is segmental ossification of the posterior longitudinal ligament at all levels fromC3 through C7. There are mild degenerative changes of the atlantooccipital joints bilaterally. There is an articulation of the left lateral mass of C1with the occiput consistent with a paracondylar process. At C1-2 there are mild degenerative changes at the atlantodental joint. There is some ligamentous thickening posterior to the odontoid process narrowing the sagittal diameter of the spinal canal which measures approximately 9 mm mm in AP dimension. At C2-3 there is mild, partially calcified central disc bulging and bilateral uncovertebral joint spurring. Mild canal narrowing is producedby the disc abnormality and some posterior ligamentous thickening. Moderate facet joint degenerative changes are present on the left. Leftneuroforamen is at the lower limit of normal. At C3-4 there is spondylosis asymmetric to the right with bilateral uncovertebral joint spurring. Severe canal narrowing is produced by the disc abnormality and ossification of the posterior longitudinal ligament with the sagittal diameter spinal canal measuring roughly 6.5 mm. Thecord is likely abutted. Mild facet joint degenerative changes are present bilaterally. There is severe bilateral foraminal narrowing. At C4-5 there is spondylosis asymmetric to the left. Severe canalnarrowing is produced by the disc abnormality ossification of posteriorlongitudinal ligament. The sagittal and spinal canal measuring roughly 5.8 mm. Cord impingement may be produced. There is mild right foraminal narrowing. At C5-6 there is spondylosis asymmetric to the left with a partially calcified left central disc protrusion. Severe canal narrowing isproduced by the disc abnormality and ossification of posterior longitudinal ligament. The AP diameter of the spinal canal to the left midline is roughly 6.8 mm. Some cord impingement may be produced. There isbilateral uncovertebral joint spurring. There is severe left foraminal narrowingand mild right. At C6-7 there is spondylosis and bilateral uncovertebral joint spurring. The axial images suggest a left paracentral/foraminal disc protrusion measuring roughly 3 mm in AP dimension. Mild canal narrowing is producedby the disc abnormality and some ossification of posterior longitudinal ligament. There is severe bilateral foraminal narrowing. At C7-T1 there is spondylosis asymmetric to the right. Moderate canal narrowing is produced by the disc abnormality and ossification ofposterior longitudinal ligament with the sagittal dimension of the spinal canal measuring roughly 8 mm. Mild facet joint degenerative changes arepresent bilaterally. There is severe right foraminal narrowing and mild left. At T1-T2 there is mild spondylosis and bilateral uncovertebral joint spurring. There is no canal narrowing. There may be some fusion of the facet joints bilaterally at this level. There is moderate right and mild left foraminal narrowing. At T2-3 there is spondylosis with a partially calcified left paracentral disc protrusion and bilateral uncovertebral joint spurring. Mild canal narrowing is produced. There is moderate right foraminal narrowing andmild left. The right styloid process is prominent measuring approximately 47 mmlength IMPRESSION: Multilevel cervical degenerative disc and joint disease with disc bulging/spondylosis, ossification of posterior longitudinal ligament,canal narrowing, and foraminal narrowing, as detailed above. There is severe canal narrowing at C3-4, C4-5, and C5-6 and there may be cordimpingement at C5-6 and the cord may be abutted C3-4. In addition, the axial images suggest a possible left paracentral/foraminal disc protrusion at C6-7. Correlation with the patient's outside MR study and clinical findings is recommended. Narrowing the sagittal and spinal canal at C1-2 level secondary to ligamentous thickening posterior to the odontoid process. The APdiameter spinal canal measures roughly 7 mm. Findings consistent with diffuse idiopathic skeletal hyperostosisextending from roughly C2-C7. Mild canal narrowing at T2-3 secondary to spondylosis with a partially calcified left paracentral disc protrusion. Mild spondylosis at T1-T2. Report dictated by Papa Gallegos DO (Veneer Measurer). Jerome Arriaga MD have personally reviewed and interpreted this examination/study. > Interpreting Provider: Jerome Koehler MD on 05/09/2023 11:14 AM Sergio Wilburn MD CT ORDERABLES * XR SKULL TO ANKLE DI (04/30/2023 10:47 AM CDT) Anatomical Region Laterality Modality Radiographic Jessie ging 04/30/2023 11:0 9 AM CDT Impressions 04/30/2023 11:37 AM CDT IMPRESSION: There is a curvature of the thoracic spine with positive sagittal balance measuring 10.0 cm. Report dictated by Tirso Barragan MD, (chairman president and chief executive officer). Jaydon Arriaga MD have personally reviewed and interpreted this examination/study. > Interpreting Provider: Jaydon Hilton MD on 04/30/2023 11:37 AM Narrative 04/30/2023 11:37 AM CDT PROCEDURE: XR SKULL TO ANKLE DI DATE/TIME OF EXAM: 04/30/2023 10:47 AM CLINICAL INFORMATION: None relevant/not provided if blank. Indication: M54.2: Cervicalgia Additional History: COMPARISON: None. FINDINGS: There is dextrocurvature of the thoracic spine. Neutral coronal balance. There is positive sagittal imbalance measuring 10.0 cm. No acute fracture or dislocation is identified. Degenerative disc disease of the cervical, thoracic, lumbar spine. There is bilateral genu varum. Procedure Note Jaydon Hilton MD - 04/30/2023 PROCEDURE: XR SKULL TO ANKLE DI DATE/TIME OF EXAM: 04/30/2023 10:47 AM CLINICAL INFORMATION: None relevant/not provided if blank. Indication: M54.2: Cervicalgia Additional History: COMPARISON: None. FINDINGS: There is dextrocurvature of the thoracic spine. Neutral coronal balance. There is positive sagittal imbalance measuring 10.0 cm. No acute fracture or dislocation is identified. Degenerative discdisease of the cervical, thoracic, lumbar spine. There is bilateral genu varum. IMPRESSION: There is a curvature of the thoracic spine with positive sagittalbalance measuring 10.0 cm. Report dictated by Tirso Barragan MD, MD (chairman president and chief executive officer). I, Jaydon Hilton MD have personally reviewed and interpreted this examination/study. > Interpreting Provider: Jaydon Hilton MD on 04/30/2023 11:37 AM Sam Jackson MD [facility] Care Teams Laundry Superintendent Relationship Specialty Start Date End Date Thao Kumar PA [address] [place] [address] PCP - General Nurse Practitioner Primary Care 04/30/23
--- OUTSIDE RECORDS SUMMARY | 2024-08-28 10:58 | XMS_ITS | Referral Summary ---
Author Organization [facility] [address] Address [address] [place] [id number] Care Team Providers Care Freelance Graphic Designer Name Role Phone No, Physician Primary Care Provider [phone] Social History Tobacco Use Types Packs/Day Years Used Date Smoking Tobacco: Never Assessed Personal Safety Answer Date Recorded Getting School Help Needed Not on file 10/05 Sex and Gender Information Value Date Recorded Sex Assigned at Not on file Legal Sex Male 1:59 AM NURSE INTERN Gender Identity Not on file Sexual Orientation Not on file Plan of Treatment Not on file Insurance [facility] [id number] Care Teams Freelance Graphic Designer Relationship Specialty Start Date End Date No, Physician PCP - General 04/11/23
--- OUTSIDE RECORDS SUMMARY | 2024-08-28 10:58 | XMS_ITS | Clinical Summary ---
Author Organization [facility] Care Team Providers Care Ski Instructor Name Role Phone Unavailable Primary Care Provider Unavailabl e Social History Tobacco Use Types Packs/Day Years Used Date Smoking Tobacco: Never Assessed Sex and Gender Information Value Date Recorded Sex Assigned at Not on file Legal Sex Male 11:28 AM TOBACCO SWEEPER Gender Identity Not on file Sexual Orientation Not on file Plan of Treatment Health Maintenance Due Date Last Done Comments Hepatitis C Virus (HCV) Screening 1966 TdaP Immunization 1966 Hepatitis B Immunization (1 of 3 - 19+ 3-dose series) 1985 Colonoscopy 2011 Colorectal Cancer Screening 2011 Cologuard 2016 Immunochemical Fecal Occult Blood 2016 Pneumococcal Immunization (5 0+ years) (1 of 1 - PCV) 2016 Zoster Immunization (1 of 2) 2016 PSA Discussion 2021 Influenza Immunization (#1) 2024 SARS-COV-2 Immunization ( - season) 2024 Respiratory Syncytial Virus (RSV) Immunization (Adult) (1 - 1-dose 75+ series) 2041 Meningococcal Immunization (ACWY) Aged Out No longer eligible based on patient's age to complete this topic Pneumococcal Immunization Combined Aged Out No longer eligible based on patient's age to complete this topic Rotavirus Immunization Aged Out No lo nger eligible based on patient's age to complete this topic
--- OUTSIDE RECORDS SUMMARY | 2024-08-28 10:58 | XMS_ITS | Clinical Summary ---
Author Organization [facility] [address] Address [address] [place] [id number] Care Team Providers Care Dramatic Agent Name Role Phone No, Physician Primary Care Provider [phone] Social History Tobacco Use Types Packs/Day Years Used Date Smoking Tobacco: Never Assessed Personal Safety Answer Date Recorded Getting School Help Needed Not on file 10/05 Sex and Gender Information Value Date Recorded Sex Assigned at Not on file Legal Sex Male 1:59 AM WEAVER NARROW FABRICS Gender Identity Not on file Sexual Orientation Not on file Plan of Treatment Not on file Insurance [facility] [id number] Care Teams Dramatic Agent Relationship Specialty Start Date End Date No, Physician PCP - General 04/11/23
--- OUTSIDE RECORDS SUMMARY | 2024-08-28 10:58 | XMS_ITS | Encounter Summary ---
Author Organization [facility] Address [facility] [facility] [place] [address] Care Team Providers Care Tape Machine Tailer Name Role Phone Thao Kumar Primary Care Provider Reason for Visit * Reason Comments Refill Request Encounter Details Date Type Department Care Team (Late st Contact Info) Description 04/05/2024 Refill [facility] - Neurosurgery [address] [place] [id number] Sam Jackson MD [address] [place] [address] Refill Request Social History Tobacco Use Types Packs/Day Years Used Date Smoking Tobacco: Former Cigarettes Smokeless Tobacco: Never Alcohol Use Standard Drinks/Week Comments Never 0 (1 standard drink = 0.6 oz pur e alcohol) Sex and Gender Information Value Date Recorded Sex Assigned at Not on file Gender Identity Not on file Sexual Orientation Not on file documented as of this encounter Plan of Treatment Not on file documented as of this encounter Visit Diagnoses Diagnosis Cervicalgia documented in this encounter Care Teams Tape Machine Tailer Relationship Specialty Start Date End Date Thao Kumar PA [address] [place] [address] PCP - General Nurse Practitioner Primary Care 04/30/23 documented as of this encounter
[2024-08-28 13:57] LABS: Basophils Absolute Auto 0.1 K/mm3 (0.0-0.1); Basophils Percent Auto 0.8 % (0.2-1.2); Eosinophils Absolute Auto 0.1 K/mm3 (0-0.3); Eosinophils Percent Auto 1.5 % (0-4.4); Hematocrit 49.4 % (42.0-52.0); Hemoglobin 17.1 g/dL (14.0-18.0); Immature Granulocyte Absolute 0.09 K/mm3 (0.00-0.031); Immature Granulocyte Percent A 1.2 % (0-0.5); Lymphocytes Absolute Auto 1.55 K/mm3 (0.9-3.2); Lymphocytes Percent Auto 19.8 % (18.3-44.2); Mean Corpuscular HGB Conc 34.6 g/dl (32-36); Mean Corpuscular Hemoglobin 30.1 pg (26-34); Mean Corpuscular Volume 86.8 fl (80-100); Mean Platelet Volume 9.8 fl (7.4-10.4); Monocytes Absolute Auto 0.7 K/mm3 (0.1-0.6); Monocytes Percent Auto 9.3 % (2.6-8.5); Neutrophils Absolute Auto 5.3 K/mm3 (1.3-6.7); Neutrophils Percent Auto 67.4 % (45.5-73.1); Platelet Count Result 197 k/mm3 (150-375); Red Blood Count 5.69 M/mm3 (4.6-6.20); Red Cell Distribution Width 15.9 % (11.5-14.5); White Blood Count 7.8 K/mm3 (4.5-10.0)
[2024-08-28 14:16] LABS: Hemoglobin A1C 9.3 % (<5.7)
[2024-08-28 14:33] LABS: Alanine Aminotransferase 32 U/L (6-50); Albumin Level 4.7 g/dL (3.5-5.1); Alkaline Phosphatase 74 U/L (38-126); Anion Gap 15 mmol/L (4-12); Aspartate Amino Transferase 32 U/L (17-59); Bilirubin,Total 0.8 mg/dL (0.2-1.3); Blood Urea Nitrogen 14 mg/dL (9-20); Calcium 9.3 mg/dL (8.4-10.2); Carbon Dioxide 22 mmol/L (22-30); Chloride 103 mmol/L (98-107); Estimated Glomerular Filt Rate > 60; Glucose 181 mg/dL (65-110); Potassium 4.4 mmol/L (3.4-5.0); Sodium 140 mmol/L (137-145)
== END 2024-08-28 10:14 | disposition home or self-care (01) ==
LOC: ANHGOSHLAB 10:15
PROVIDERS: PCP Nurse Practitioner Family; Visit Provider Nurse Practitioner Family
DX: E78.5 Hyperlipidemia, unspecified (principal); Z86.39 Personal history of other endocrine, nutritional and metabolic disease; E11.29 Type 2 diabetes mellitus with other diabetic kidney complication; R80.9 Proteinuria, unspecified; M19.90 Unspecified osteoarthritis, unspecified site
CPT/HCPCS: 36415; 80053; 83036; 84403; 85025

== ENCOUNTER 2025-05-19 11:00 | Outpatient (CLI) | payer OTHER, SELFPAY ==
--- OUTSIDE RECORDS SUMMARY | 2025-05-19 12:35 | XMS_ITS | Encounter Summary ---
Author Organization [facility] Address [address] [facility] [facility] [place] [address] Care Team Providers Care Manager Dental Name Role Phone Thao Kumar Primary Care Provider [phone] Reason for Visit * Reason Comments Refill Request Encounter Details Date Type Department Care Team (Late st Contact Info) Description 04/05/2024 Refill [facility] - Neuro[facility] [address] [place] [address], [place] [id number] Sam Jackson MD Refill Request Social History Tobacco Use Types Packs/Day Years Used Date Smoking Tobacco: Former Cigarettes Smokeless Tobacco: Never Alcohol Use Standard Drinks/Week Comments Never 0 (1 standard drink = 0.6 oz pur e alcohol) Sex and Gender Information Value Date Recorded Sex Assigned at Not on file Legal Sex Male 11:42 AM CDT Gender Identity Not on file Sexual Orientation Not on file documented as of this encounter Plan of Treatment Not on file documented as of this encounter Visit Diagnoses Diagnosis Cervicalgia documented in this encounter Care Teams Manager Dental Relationship Specialty Start Date End Date Thao Kumar PA [address] [place] [address] PCP - General Nurse Practitioner Primary Care 04/30/23 documented as of this encounter
--- OUTSIDE RECORDS SUMMARY | 2025-05-19 12:35 | XMS_ITS | Clinical Summary ---
Author Organization [facility] Address [address] [place] [address] Care Team Providers Care Feather Edger Name Role Phone Thao Kumar Primary Care Provider [phone] Source Comments [facility],non-owned Affiliates and Associated Physician Practices is amultiple site organization consisting of ambulatory clinics and hospital sitesin [place]. This disclosure is being madepursuant to the Care Everywhere program and may not contain all information available regarding this patient. Last updated 18.[facility] [employer] Allergies Active Allergy Reactions Criticality Noted Date Comments Codeine Rash Medium 04/30/2023 Penicillins Rash Medium 04/30/2023 Medications * Be aware that medications may not be up to date on this document. Alwaysverify current medications with the patient. metFORMIN (Glucophage) 1000 MG tablet Take 1 (one) tablet by mouth once daily 3 Active Ozempic, 0.25 or 0.5 MG/DOSE, 2 MG/3ML SOPN INJECT 0.5 MG (0.736 ML) SUBCUTANEOUSLY WEEKLY FOR 4 WEEKS 3 Active sertraline (Zoloft) 100 MG tablet Take 1 (one) tablet by mouth once daily 3 Active glipiZIDE (Glucotrol) 10 MG tablet TAKE 1 TABLET (10 MG) ORALLY TWICE A DAY 3 Active Jardiance 25 MG tablet TAKE 1 TABLET (25 MG) ORALLY DAILY 3 Active lisinopril (Prinivil; Zestril) 2.5 MG tablet Take 1 (one) tablet by mouth once daily 3 Active atorvastatin (Lipitor) 20 MG tablet Take 1 (one) tablet by mouth once daily 2 Active Blood Glucose Monitoring Suppl (Accu-Chek Guide) w/Device KIT 3 Active Accu-Chek Guide test strip 3 Active testosterone cypionate (Depo-Testoste jeannie) 200 MG/ML injection 3 Active BD Plastipak Syringe 21G X 1 3 ML MISC USE DIRECTED EVERY 2 WEEKS TO ADMINISTER TESTOSTERONE INJECTION 3 Active Social History Tobacco Use Types Packs/Day Years [...] 9:01 AM CDT Height 177.8 cm (5' 10) 05/03/2023 9:01 AM CDT Body Mass Index [...] of 2) 2016 SCREENING FOR DIABETES 04/30/2023 DEPRESSION SCREENING 07/22/2024 COVID-19 VACCINE (1 - 2023-2 5 season) 2025 INFLUENZA VACCINE (#1) 2025 HIB VACCINE Aged Out No longer eligi ble based on patient's age to complete this topic HPV VACCINE Aged Out No longer eligi ble based on patient's age to complete this topic MENINGOCOCCAL (Group B) VACC INE SHARED DECISION-MAKING Aged Out No longer eligibl e based on patient's age to complete this topic MENINGOCOCCAL GROUPS A/C/Y/W VACCINE Aged Out No longer eligible b ased on patient's age to complete this topic Insurance [employer] Care Teams Feather Edger Relationship Specialty Start Date End Date Thao Kumar PA [address] [place] [address] PCP - General Nurse Practitioner Primary Care 04/30/23
--- OUTSIDE RECORDS SUMMARY | 2025-05-19 12:35 | XMS_ITS | Clinical Summary ---
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 Gender Identity Not on file Sexual Orientation Not on file Plan of Treatment Health Maintenance Due Date Last Done Comments Hepatitis C Virus (HCV) Screening 1965 TdaP Immunization 1966 Hepatitis B Immunization (1 of 3 - 19+ 3-dose series) 1985 Cologuard 2011 Colonoscopy 2011 Colorectal Cancer Screening 2011 Immunochemical Fecal Occult Blood 2011 Pneumococcal Immunization (5 0+ years) (1 of 1 - PCV) 2016 Zoster Immunization (1 of 2) 2016 Influenza Immunization (#1) 2025 SARS-COV-2 Immunization ( - season) 2025 Respiratory Syncytial Virus (RSV) Immunization (Adult) (1 - 1-dose 75+ series) 2041 Human Papillomavirus (HPV) Immunization Aged Out No longer eligible b ased on patient's age to complete this topic Meningococcal Immunization (ACWY) Aged Out No longer eligible based on patient's age to complete this topic Rotavirus Immunization Aged Out No lo nger eligible based on patient's age to complete this topic
--- OUTSIDE RECORDS SUMMARY | 2025-05-19 12:35 | XMS_ITS | Clinical Summary ---
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
[2025-05-19 13:19] LABS: Alanine Aminotransferase 31 U/L (6-50); Albumin Level 4.7 g/dL (3.5-5.1); Alkaline Phosphatase 72 U/L (38-126); Anion Gap 12 mmol/L (4-12); Aspartate Amino Transferase 39 U/L (17-59); Bilirubin,Total 0.7 mg/dL (0.2-1.3); Blood Urea Nitrogen 15 mg/dL (9-20); Calcium 9.2 mg/dL (8.4-10.2); Carbon Dioxide 26 mmol/L (22-30); Chloride 101 mmol/L (98-107); Estimated Glomerular Filt Rate > 60; Glucose 169 mg/dL (65-110); Potassium 4.1 mmol/L (3.4-5.0); Sodium 139 mmol/L (137-145); Total Protein 7.7 g/dL (6.3-8.2)
[2025-05-19 13:51] LABS: MALB Creatinine Ratio 159.8 mg/g (0-30)
[2025-05-19 14:19] LABS: Hemoglobin A1C 8.3 % (<5.7)
== END 2025-05-19 11:01 | disposition home or self-care (01) ==
LOC: ANHGOSHLAB 11:01
PROVIDERS: PCP Nurse Practitioner Family; Visit Provider Nurse Practitioner Family
DX: E11.29 Type 2 diabetes mellitus with other diabetic kidney complication (principal); R80.9 Proteinuria, unspecified
CPT/HCPCS: 36415; 80053; 82043; 83036

== ENCOUNTER 2025-06-29 02:22 | Day surgery (SDC) | payer OTHER, SELFPAY ==
[2025-06-23 11:08] VITALS: BMI 40.1
--- OUTSIDE RECORDS SUMMARY | 2025-06-29 02:25 | XMS_ITS | Encounter Summary ---
Author Organization [facility] Address [address] [place] [address] Care Team Providers Care Administrative Assistant Office Manager Name Role Phone Thao Kumar Primary Care Provider [phone] Reason for Visit * Reason Comments Refill Request Encounter Details Date Type Department Care Team (Late st Contact Info) Description 04/05/2024 Refill [facility] [address] [place] [address], [place] [phone] Sam Jackson MD Refill Request Social History [...] Cervicalgia documented in this encounter Care Teams Administrative Assistant Office Manager Relationship Specialty Start Date End Date Thao Kumar PA [address] [place] [address] PCP - General Nurse Practitioner Primary Care 04/30/23 documented as of this encounter
--- OUTSIDE RECORDS SUMMARY | 2025-06-29 02:25 | XMS_ITS | Clinical Summary ---
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
--- OUTSIDE RECORDS SUMMARY | 2025-06-29 02:25 | XMS_ITS | Clinical Summary ---
Author Organization [facility] Address [address] [place] [address] Care Team Providers Care Chief Lock Tender Operator Name Role Phone Thao Kumar Primary Care Provider [phone] Source Comments [facility],non-owned Affiliates and Associated Physician Practices is amultiple site organization consisting of ambulatory clinics and hospital sitesin [place], [place], [place] and [place]. This disclosure is being madepursuant to the Care Everywhere program and may not contain all information available regarding this patient. Last updated 18.[facility] [employer] Allergies Active Allergy Reactions Criticality Noted Date [...] DEPRESSION SCREENING 07/22/2024 COVID-19 VACCINE (1 - 2024-2 6 season) 2025 INFLUENZA VACCINE (#1) 2025 HIB [...] patient's age to complete this topic Insurance [email or web address] Care Teams Chief Lock Tender Operator Relationship Specialty Start Date End Date Thao Kumar PA [address] [place] [address] PCP - General Nurse Practitioner Primary Care 04/30/23
--- OUTSIDE RECORDS SUMMARY | 2025-06-29 02:25 | XMS_ITS | Clinical Summary ---
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
[2025-06-29 09:45] VITALS: BP 135/65; PULSE 90; RESP 18; TEMP 36.1; O2SAT 97; BMI 40.9
[2025-06-29] MEDS: LACTATED RINGERS 1,000 ML 150 ML IV CONT (09:52)
--- NOTE | 2025-06-29 10:19 | WPDANESEPPF ---
Anes - Initial Pre Proc Eval Procedure: Operation Date: 06/29/25 11:00 Proposed Procedures p Screening Colonoscopy - Rosendo Silveira MD Date/Time: 06/29/25 10:19 Surgeon: Rosendo Silveira MD Pre Op Diagnosis: Screening/Positive Cologuard Patient Data Age: 59 Gender: M Height: 1.78 m Weight: 129.4 kg Last Vital Signs Temp 97 F L 06/29/25 09:45 Pulse 90 06/29/25 09:45 Resp 18 06/29/25 09:45 BP 135/65 06/29/25 09:45 Pulse Ox 97 06/29/25 09:45 O2 Del Method Room Air 06/29/25 09:45 Allergies Allergy/AdvReac Type Severity Reaction Status Date / Time codeine Allergy Mild Hives Verified 06/29/25 09:44 Penicillins Allergy Mild Hives Verified 06/29/25 09:44 lisinopril AdvReac Cough Verified 06/29/25 09:44 Home Medications ?Medication ?Instructions ?Recorded ?Confirmed ?Type blood-glucose sensor (Dexcom G6 #3 ea 09/14/24 06/23/25 Rx Sensor device) blood-glucose,circulation crew leader,cont #1 ea 09/14/24 06/23/25 Rx (Dexcom G6 Park Guide) testosterone cypionate 200 mg/mL 200 mg IM ONCE #10 mL 09/21/24 06/23/25 Rx intramuscular oil blood-glucose transmitter (Dexcom #1 ea 09/23/24 06/23/25 Rx G6 Transmitter device) empagliflozin 25 mg tablet See Rx Instructions .Route 01/28/25 06/29/25 Rx (Jardiance) .COMPLEX #90 tabs rosuvastatin 10 mg tablet See Rx Instructions .Route 04/26/25 06/29/25 Rx .COMPLEX #90 tabs sertraline 100 mg tablet See Rx Instructions .Route 04/27/25 06/29/25 Rx .COMPLEX #90 tabs blood-glucose sensor (Dexcom G7 #6 ea 05/25/25 06/23/25 Rx Sensor device) blood-glucose,circulation crew leader,cont #1 ea 05/25/25 06/23/25 Rx (Dexcom G7 Park Guide) glipizide 10 mg tablet 10 mg PO BID #180 tabs 05/25/25 06/29/25 Rx losartan 50 mg tablet 50 mg PO DAILY #90 tabs 05/25/25 06/29/25 Rx metformin 1,000 mg tablet 1,000 mg PO BID #90 tabs 05/25/25 06/29/25 Rx syringe with needle 3 mL 21 gauge #100 ea 05/25/25 06/23/25 Rx x 1 Patient hx anesthesia problems: none Family hx anesthesia problems: none Results Review: All pre-operative results and documents have been reviewed as part of the pre-operative evaluation. [facility] Past Medical History Medical History Positive colorectal cancer screening using Cologuard test High blood triglycerides History of COVID-19 Dyspepsia Colon cancer screening Nausea Other and unspecified hyperlipidemia Type 2 diabetes mellitus without complication, without long-term current use of insulin Surgical History Surgical History History of uvulectomy History of tonsillectomy and adenoidectomy History of right inguinal hernia repair History of lumbar fusion Family History Family History Father Family history of diabetes mellitus in first degree relative Family history of psoriasis Other Diabetes mellitus Social History Social History Smoking status: Never smoker Alcohol intake: never Substance use: never Substance use type: does not use Lack of Transportation: No Lack of Food: Never True Current Housing: I Have Housing Concerned About Future Housing: No Difficulty Paying Gas/Electric Bills: No Difficulty Paying for Meds: No Currently Unemployed: No Education: Associate Degree Difficulty w/ Childcare or Family Care: No Living arrangements: with family Occupation/Education: occupation 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 Gender identity (if verbalized by the patient): Male Sexual Orientation (if Verbalized by the Patient): Straight or Heterosexual Spiritual care concerns: No Anes - Eval Final PreProcedure Day of Procedure 06/29/25 10:19 Patient weight: morbidly obese Heart: regular rate and rhythm Lungs: clear to auscultation and normal air movement Airway: Mallampati scale Neurological: alert and oriented Last oral intake: >/= 8 hours ASA classification: III Emergent: no Anesthetic plan: proceed Anesthesia type and monitoring: general GIVS and standard monitoring Results Review: All pre-operative results and documents have been reviewed as part of the pre-operative evaluation. Informed Consent: The patient's anesthetic plan and its attendant risks and benefits were discussed with the patient/family/POA. Questions were solicited and answers provided to the satisfaction of the patient/family/POA.
--- NOTE | 2025-06-29 10:24 | PM.HPGS ---
History of Present Illness History of Present Illness Consent: Risks, benefits, and alternatives have been discussed and questions answered. Patient agrees to proceed with procedure. Chief complaint: Screening/Positive Cologuard Narrative: Bryson Suarez is a 59 year old male here for + cologuard, last colonoscopy more than 10 years ago Review of Systems Review of Systems: All systems reviewed & are unremarkable except as noted in HPI and below PMFSH Past Medical History Medical History Positive colorectal cancer screening using Cologuard test High blood triglycerides History of COVID-19 Dyspepsia Colon cancer screening Nausea Other and unspecified hyperlipidemia Type 2 diabetes mellitus without complication, without long-term current use of insulin Surgical History Surgical History History of uvulectomy History of tonsillectomy and adenoidectomy History of right inguinal hernia repair History of lumbar fusion Family History Family History Father Family history of diabetes mellitus in first degree relative Family history of psoriasis Other Diabetes mellitus Social History Social History Smoking status: Never smoker Alcohol intake: never Substance use: never Substance use type: does not use Lack of Transportation: No Lack of Food: Never True Current Housing: I Have Housing Concerned About Future Housing: No Difficulty Paying Gas/Electric Bills: No Difficulty Paying for Meds: No Currently Unemployed: No Education: Associate Degree Difficulty w/ Childcare or Family Care: No Living arrangements: with family Occupation/Education: occupation 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 Gender identity (if verbalized by the patient): Male Sexual Orientation (if Verbalized by the Patient): Straight or Heterosexual Spiritual care concerns: No Meds Home Medications and Allergies Home Medications ?Medication ?Instructions ?Recorded ?Confirmed ?Type blood-glucose sensor (Dexcom G6 #3 ea 09/14/24 06/23/25 Rx Sensor device) blood-glucose,academic affairs coordinator,cont #1 ea 09/14/24 06/23/25 Rx (Dexcom G6 Nuclear Medical Tech) testosterone cypionate 200 mg/mL 200 mg IM ONCE #10 mL 09/21/24 06/23/25 Rx intramuscular oil blood-glucose transmitter (Dexcom #1 ea 09/23/24 06/23/25 Rx G6 Transmitter device) empagliflozin 25 mg tablet See Rx Instructions .Route 01/28/25 06/29/25 Rx (Jardiance) .COMPLEX #90 tabs rosuvastatin 10 mg tablet See Rx Instructions .Route 04/26/25 06/29/25 Rx .COMPLEX #90 tabs sertraline 100 mg tablet See Rx Instructions .Route 04/27/25 06/29/25 Rx .COMPLEX #90 tabs blood-glucose sensor (Dexcom G7 #6 ea 05/25/25 06/23/25 Rx Sensor device) blood-glucose,academic affairs coordinator,cont #1 ea 05/25/25 06/23/25 Rx (Dexcom G7 Nuclear Medical Tech) glipizide 10 mg tablet 10 mg PO BID #180 tabs 05/25/25 06/29/25 Rx losartan 50 mg tablet 50 mg PO DAILY #90 tabs 05/25/25 06/29/25 Rx metformin 1,000 mg tablet 1,000 mg PO BID #90 tabs 05/25/25 06/29/25 Rx syringe with needle 3 mL 21 gauge #100 ea 05/25/25 06/23/25 Rx x 1 Allergies Allergy/AdvReac Type Severity Reaction Status Date / Time codeine Allergy Mild Hives Verified 06/29/25 09:44 Penicillins Allergy Mild Hives Verified 06/29/25 09:44 lisinopril AdvReac Cough Verified 06/29/25 09:44 Vital Signs Vital Signs - 24 hr 06/29/25 09:45 Temperature 97 F L Pulse Rate 90 Respiratory Rate 18 Blood Pressure 135/65 Pulse Oximetry 97 Oxygen Delivery Room Air Exam Const: General: comfortable and no acute distress HENMT: Face/Nose/Sinus: Normal nares present Eyes: General: appearance normal, both eyes and all related structures Neck: Neck: no JVD Resp: Auscultation: clear to auscultation bilaterally Cardio: Rate: regular rate Rhythm: regular rhythm GI: Inspection: non-distended GI Palp: Yes Soft to palpation Skin: General skin exam: normal color Extrem: General: normal to inspection Psych: Mental Status: mental status grossly normal Assessment and Plan Assessment and plan (1) Positive colorectal cancer screening using Cologuard test: Code(s): R19.5 - Other fecal abnormalities Status: Acute Assessment and Plan: colonoscopy
--- NOTE | 2025-06-29 10:38 | S_PTH ---
PATIENT: Bryson Suarez LOC: [facility]#:[id number] AGE/SX: 59/M ROOM: RE06/29/[address]: Rosendo Silveira MD : 1965 BED: DIS: 06/29/2025 SPEC #: [id number] RECD: 06/29/25 11:27 STATUS: OZZIE REMariah #: [id number] HILARIO: 06/29/25 10:[address]: Rosendo Silveira DEPT: [facility] Surgical RECD BY: Cyndee Ibarra MLT, ([facility]) ENTERED: 06/29/25 11:27 SP TYPE: Surgical OTHR DR: Dilia Singleton APRN Tissues: A - Colon Polypectomy Procedures: Hematoxylin and Eosin Stain Gross and Microscopic Level 4
[2025-06-29 10:41] VITALS: BP 121/82; PULSE 81; RESP 20; O2SAT 93
[2025-06-29 10:51] VITALS: BP 127/80; PULSE 80; RESP 19; O2SAT 96
[2025-06-29 11:01] VITALS: BP 138/88; PULSE 74; RESP 18; O2SAT 94
== END 2025-06-29 11:10 | disposition home or self-care (01) ==
PROVIDERS: PCP Nurse Practitioner Family; Referring Provider Nurse Practitioner Family; Visit Provider Internal Medicine Gastroenterology
PROC: 0DJD8ZZ Inspection of Lower Intestinal Tract, Via Natural or Artificial Opening Endoscopic (ICD-10-PCS; CPT 45378; principal; 2025-06-29 11:00)
DX: R19.5 Other fecal abnormalities (principal); K63.5 Polyp of colon; E78.49 Other hyperlipidemia; E11.9 Type 2 diabetes mellitus without complications; E66.01 Morbid (severe) obesity due to excess calories; Z68.41 Body mass index [BMI] 40.0-44.9, adult; Z79.84 Long term (current) use of oral hypoglycemic drugs; Z98.890 Other specified postprocedural states; Z98.1 Arthrodesis status
CPT/HCPCS: 45385; 82948; 88305; J2003; J2704; J7120